=== PATIENT | female | born 1980 | race Two or more races ===

== ENCOUNTER 2020-10-06 12:59 | Emergency (ER) | payer SELFPAY ==
[~2020-10-06] VITALS: Ht 162.6 cm; Wt 90.0 kg
[2020-10-06 14:15] LABS: BASO # 0.1 x10^3/uL (0.0-0.2); BASO % 1 % (0-3); EOS # 0.1 x10^3/uL (0.0-0.7); EOS % 2 % (0-3); HEMOGLOBIN 10.8 g/dL (12.0-15.5); LYMPH # 2.3 x10^3/uL (1.0-4.8); LYMPH % 30 % (24-48); MEAN CORPUSCULAR HEMOGLOBIN 22 pg (25-35); MEAN CORPUSCULAR HGB CONC 32 g/dL (31-37); MEAN CORPUSCULAR VOLUME 70 fL (79-100); MONO # 0.6 x10^3/uL (0.0-1.1); MONO % 7 % (0-9); NEUT # 4.7 x10^3/uL (1.8-7.7); NEUT % 61 % (31-73); PLATELET COUNT 291 x10^3/uL (140-400); RED CELL DISTRIBUTION WIDTH 16.9 % (11.5-14.5); WHITE BLOOD COUNT 7.8 x10^3/uL (4.0-11.0)
[2020-10-06 14:22] LABS: CALCIUM 8.4 mg/dL (8.5-10.1); CREATININE 0.4 mg/dL (0.6-1.0); GFR 175.9; POTASSIUM 3.7 mmol/L (3.5-5.1)
[2020-10-06 14:27] LABS: BILIRUBIN,URINE NEGATIVE (NEG); CLARITY,URINE CLEAR; COLOR,URINE YELLOW; NITRITE,URINE NEGATIVE (NEG); PH,URINE 6.5 (<5.0-8.0); PROTEIN,URINE 30 mg/dL (NEG-TRACE)
[2020-10-06 14:28] LABS: ALBUMIN 3.2 g/dL (3.4-5.0); ALBUMIN/GLOBULIN RATIO 0.8 (1.0-1.7); TOTAL BILIRUBIN 0.3 mg/dL (0.2-1.0)
[2020-10-06 14:37] LABS: BACTERIA,URINE MANY /HPF (0-FEW); RBC,URINE 0 /HPF (0-2); WBC,URINE >40 /HPF (0-4)
--- NOTE | 2020-10-06 15:12 | PHYS DOC ---
Past Medical History Past Medical History: No Pertinent History Past Surgical History: Smoking Status: Never Smoker Alcohol Use: None General Adult EDM: Chief Complaint: VAGINAL BLEEDING HPI: HPI: Patient is a 40-year-old female 4 para 2 with 1 stillbirth currently 7 weeks presented to the ED today complaining of vaginal bleeding in and cramping that began yesterday. Patient states the bleeding is only when she wipes herself. Denies any nausea vomiting. She states she has not followed up with an [facility] yet. Review of Systems: Review of Systems: Constitutional: Denies fever or chills. [] Eyes: Denies change in visual acuity. [] HENT: Denies nasal congestion or sore throat. [] Respiratory: Denies cough or shortness of breath. [] Cardiovascular: Denies chest pain or edema. [] GI: Reports vaginal bleeding in , abdominal cramping, denies nausea, vomiting, bloody stools or diarrhea. [] : Denies dysuria. [] Musculoskeletal: Denies back pain or joint pain. [] Integument: Denies rash. [] Neurologic: Denies headache, focal weakness or sensory changes. [] Psychiatric: Denies depression or anxiety. [] Heart Score: C/O Chest Pain: N/A Risk Factors: Risk Factors: DM, Current or recent (<one month) smoker, HTN, HLP, family history of CAD, obesity. Risk Scores: Score 0 - 3: 2.5% MACE over next 6 weeks - Discharge Home Score 4 - 6: 20.3% MACE over next 6 weeks - Admit for Clinical Observation Score 7 - 10: 72.7% MACE over next 6 weeks - Early Invasive Strategies Allergies: Allergies: Allergies Coded Allergies Type Severity Reaction Last Updated Verified No Known Drug Allergies 10/06/20 No Physical Exam: PE: Constitutional: Well developed, well nourished, no acute distress, non-toxic appearance. [] HENT: Normocephalic, atraumatic, bilateral external ears normal, oropharynx moist, no oral exudates, nose normal. [] Eyes: PERRLA, EOMI, conjunctiva normal, no discharge. [] Neck: Normal range of motion, no tenderness, supple, no stridor. [] Cardiovascular:Heart rate regular rhythm, no murmur [] Lungs & Thorax: Bilateral breath sounds clear to auscultation [] Abdomen: Bowel sounds normal, soft, no tenderness, no masses, no pulsatile masses. [] Pelvic exam External pelvic appears normal, cervix is visualized, appears open, there is blood small amount in the cervical os. No CMT, no adnexal tenderness Skin: Warm, dry, no erythema, no rash. [] Back: No tenderness, no CVA tenderness. [] Extremities: No tenderness, no cyanosis, no clubbing, ROM intact, no edema. [] Neurologic: Alert and oriented X 3, normal motor function, normal sensory f unction, no focal deficits noted. [] Psychologic: Affect normal, judgement normal, mood normal. [] Current Patient Data: Labs: Laboratory Tests Test 10/06/20 13:00 10/06/20 14:00 Urine Collection Type Unknown Urine Color Yellow Urine Clarity Clear Urine pH 6.5 (<5.0-8.0) Urine Specific [place] >=1.030 (1.000-1.030) Urine Protein 30 mg/dL (NEG-TRACE) Urine Glucose (UA) >=1000 mg/dL (NEG) Urine Ketones (Stick) Negative mg/dL (NEG) Urine Blood Large (NEG) Urine Nitrite Negative (NEG) Urine Bilirubin Negative (NEG) Urine Urobilinogen Dipstick 1.0 mg/dL (0.2 mg/dL) Urine Leukocyte Esterase Small (NEG) Urine RBC 0 /HPF (0-2) Urine WBC >40 /HPF (0-4) Urine Squamous Epithelial Cells Mod /LPF Urine Bacteria Many /HPF (0-FEW) White Blood Count 7.8 x10^3/uL (4.0-11.0) Red Blood Count 4.90 x10^6/uL (3.50-5.40) Hemoglobin 10.8 g/dL (12.0-15.5) L Hematocrit 34.0 % (36.0-47.0) L Mean Corpuscular Volume 70 fL (79-100) L Mean Corpuscular Hemoglobin 22 pg (25-35) L Mean Corpuscular Hemoglobin Concent 32 g/dL (31-37) Red Cell Distribution Width 16.9 % (11.5-14.5) H Platelet Count 291 x10^3/uL (140-400) Neutrophils (%) (Auto) 61 % (31-73) Lymphocytes (%) (Auto) 30 % (24-48) Monocytes (%) (Auto) 7 % (0-9) Eosinophils (%) (Auto) 2 % (0-3) Basophils (%) (Auto) 1 % (0-3) Neutrophils # (Auto) 4.7 x10^3/uL (1.8-7.7) Lymphocytes # (Auto) 2.3 x10^3/uL (1.0-4.8) Monocytes # (Auto) 0.6 x10^3/uL (0.0-1.1) Eosinophils # (Auto) 0.1 x10^3/uL (0.0-0.7) Basophils # (Auto) 0.1 x10^3/uL (0.0-0.2) Platelet Estimate Pending Maternal Serum HCG Beta Subunit 57 mIU/mL (0-5) H Sodium Level 135 mmol/L (136-145) L Potassium Level 3.7 mmol/L (3.5-5.1) Chloride Level 100 mmol/L (98-107) Carbon Dioxide Level 27 mmol/L (21-32) Anion Gap 8 (6-14) Blood Urea Nitrogen 10 mg/dL (7-20) Creatinine 0.4 mg/dL (0.6-1.0) L Estimated GFR (Cockcroft-Gault) 175.9 BUN/Creatinine Ratio 25 (6-20) H Glucose Level 243 mg/dL (70-99) H Calcium Level 8.4 mg/dL (8.5-10.1) L Total Bilirubin 0.3 mg/dL (0.2-1.0) Aspartate Amino Transferase (AST) 18 U/L (15-37) Alanine Aminotransferase (ALT) 32 U/L (14-59) Alkaline Phosphatase 65 U/L (46-116) Total Protein 7.0 g/dL (6.4-8.2) Albumin 3.2 g/dL (3.4-5.0) L Albumin/Globulin Ratio 0.8 (1.0-1.7) L Laboratory Tests 10/06/20 14:00 Laboratory Tests 10/06/20 14:00 Vital Signs: Vital Signs Date Time Temp Pulse Resp B/P (MAP) Pulse Ox O2 Delivery O2 Flow Rate FiO2 10/06/20 13:05 98.5 88 18 131/76 (94) 98 Room Air 98.5 EKG: EKG: [] Radiology/Procedures: Radiology/Procedures: []PROCEDURE: OB < 14 WKS EXAM: Obstetric sonogram. HISTORY: Vaginal bleeding. TECHNIQUE: Transabdominal sonographic imaging of the pelvis was performed. COMPARISON: None. FINDINGS: The uterus measures 11.0 x 6.6 x 5.7 cm. The endometrial stripe measures approximately 8 mm in thickness. There is a small uterine fibroid measuring 1.7 cm. The ovaries are normal in size and demonstrate normal blood flow. There is no pelvic free fluid. No intrauterine gestational sac is seen. IMPRESSION: 1. No intrauterine gestational sac. Note is made that an intrauterine gestation is not expected to be seen at the reported beta-hCG level of 57. These findings can be seen with an early viable , chemical or early miscarriage. Correlate with serial beta Hg levels. If levels are increasing, short-term sonographic follow-up is recommended to assess viability and exclude ectopic gestation. 2. Small uterine fibroid. Electronically signed by: Amy Wooten MD (10/06/2020 3:19 PM) [id number] DICTATED and SIGNED BY: AMY WOOTEN MD DATE: 10/06/20 [id number] 0 Course & Med Decision Making: Course & Med Decision Making Pertinent Labs and Imaging studies reviewed. (See chart for details) This is a 40-year-old female patient presenting to the ED today with vaginal bleeding in that began yesterday. Positive urine hCG, beta-hCG 57. Hemoglobin 10.8 with hematocrit of 34.0. Glucose 243, patient denies any history of diabetes. I recommended she follows up with her PCP Blood group A+ UA appears contaminated unfortunately has small amount of leukocytes and greater than 40 WBCs, patient was sent home on cephalexin OB ultrasound-No intrauterine gestational sac. Note is made that an intrauterine gestation is not expected to be seen at the reported beta-hCG level of 57. These findings can be seen with an early viable , chemical or early miscarriage. Correlate with serial beta Hg levels. If levels are increasing, short-term sonographic follow-up is recommended to assess viability and exclude ectopic gestation.Small uterine fibroid. Patient was discharged to home, she states she was seen at another clinic and had a beta-hCG done but she does not remember the number. I requested she follows up with the clinic and shows them the results she has today of the beta- hCG and ultrasound. This patient is likely going through miscarriage. Recommended bedrest. Kevin Disclaimer: Kevin Disclaimer: This electronic medical record was generated, in whole or in part, using a voice recognition dictation system. Departure Departure Impression: Primary Impression: Threatened miscarriage Additional Impressions: UTI (urinary tract infection) Qualified Codes: N39.0 - Urinary tract infection, site not specified Hyperglycemia Disposition: DC HOME SELF CARE/HOMELESS Condition: STABLE Referrals: NO PCP (PCP) follow up with your OBGYN or the place you went next week Patient Instructions: Hyperglycemia, [id number], Threatened Miscarriage, [id number], Urinary Tract Infection Additional Instructions: You were seen in the emergency room, from the lab work we have done and ultrasound your beta-hCG is 57, this is very low. There is a likelihood he could be having a miscarriage. Please maintain bedrest, do not lift anything greater than a gallon of milk or do any strenuous activities, no intercourse. Please follow-up with the clinic she went to during the week you can go see an [facility] that we provided. Your blood glucose is high. See your primary care doctor for the likelihood of diabetes. You also have urinary tract infection, complete your antibiotics Scripts Cephalexin (CEPHALEXIN) 500 Mg Tablet 1 TAB PO BID, #14 TAB Prov: CHANDU NG APRN 10/06/20 CHANDU NG APRN Oct 06, 2020 15:11
--- NOTE | 2020-10-06 15:22 | RAD ---
EXAM: Obstetric sonogram. HISTORY: Vaginal bleeding. TECHNIQUE: Transabdominal sonographic imaging of the pelvis was performed. COMPARISON: None. FINDINGS: The uterus measures 11.0 x 6.6 x 5.7 cm. The endometrial stripe measures approximately 8 mm in thickness. There is a small uterine fibroid measuring 1.7 cm. The ovaries are normal in size and demonstrate normal blood flow. There is no pelvic free fluid. No intrauterine gestational sac is seen . IMPRESSION: 1. No intrauterine gestational sac. Note is made that an intrauterine gestation is not expected to be seen at the reported beta-hCG level of 57. These findings can be seen with an early viable , chemical or early miscarriage. Correlate with serial beta Hg levels. If levels are increa sing, short-term sonographic follow-up is recommended to assess viability and exclude ectopic gestati on. 2. Small uterine fibroid. Electronically signed by: Amy Wooten MD (10/06/2020 3:19 PM) [id number]
[2020-10-06 15:48] LABS: ANISOCYTOSIS SLIGHT; HYPOCHROMIA MOD; MICROCYTOSIS MOD; PLT ESTIMATE ADEQUATE (ADEQUATE); POLYCHROMASIA SLIGHT
[2020-10-06 16:00] VITALS: BP 124/68
[2020-10-06] MEDS ORDERED: CEPH500T PO (16:48)
== END 2020-10-06 16:55 | disposition home or self-care (01) ==
LOC: ER 12:59
DX: O20.0 Threatened abortion (principal); O23.41 Unspecified infection of urinary tract in pregnancy, first trimester; R73.9 Hyperglycemia, unspecified; Z98.890 Other specified postprocedural states; Z3A.01 Less than 8 weeks gestation of pregnancy
CPT/HCPCS: 36415; 76801; 80053; 81001; 84702; 85025; 86850; 86900; 86901; 87086; 87491; 87591; 99284; Q0111